=== PATIENT | female | born 1995 | race Two or more races ===

== ENCOUNTER → 2024-03-07 | Outpatient (CLI) | payer OTHER | LOC: M PLALAB 08:20 | PROVIDERS: ATTEND Nurse Practitioner Family | DX: Z34.81 Encounter for supervision of other normal pregnancy, first trimester (principal) ==

== ENCOUNTER → 2024-03-25 | Outpatient (CLI) | payer OTHER ==
[2024-03-25 15:48] LABS: TOTAL PROTEIN,RANDOM URINE 21.4 MG/DL (0.0-14.0)
[2024-03-25 15:53] LABS: CREATININE,RANDOM URINE 212.7 MG/DL
[2024-03-25 16:34] LABS: GC DNA AMPLIFICATION NEGATIVE (NEGATIVE)
[2024-03-25 19:51] LABS: HEMATOCRIT 39.3 % (36.0-47.0); HEMOGLOBIN 13.1 g/dl (12.0-15.5); MEAN CORPUSCULAR HEMOGLOBIN 30.3 pg (27.0-33.0); MEAN CORPUSCULAR HGB CONC 33.3 g/dl (32.0-36.5); MEAN CORPUSCULAR VOLUME 90.8 fl (80.0-96.0); PLATELET COUNT, AUTOMATED 313 10^3/uL (150-450); RED BLOOD COUNT 4.33 10^6/uL (4.00-5.40); WHITE BLOOD COUNT 9.7 10^3/uL (4.0-10.0)
[2024-03-25 20:22] LABS: LDH LACTATE DEHYDROGENASE 207 U/L (120-246)
[2024-03-25 20:23] LABS: ALT/SGPT 22 U/L (7.0-40); AST/SGOT 43 U/L (<34); BILIRUBIN,TOTAL 0.4 MG/DL (0.3-1.2); CREATININE FOR GFR 0.67 MG/DL (0.55-1.30); GLOMERULAR FILTRATION RATE > 60.0 (>60)
[2024-03-25 20:52] LABS: HIV 1&2 SCREEN NEGATIVE (NEGATIVE)
[2024-03-25 21:01] LABS: HEPATITIS C VIRUS ABY INDEX < 0.02 INDEX (<0.8)
== END ==
LOC: M PLALAB 14:10
PROVIDERS: ATTEND Nurse Practitioner Family
DX: O09.299 Supervision of pregnancy with other poor reproductive or obstetric history, unspecified trimester (principal); Z3A.00 Weeks of gestation of pregnancy not specified

== ENCOUNTER → 2024-04-11 | Outpatient (CLI) | payer OTHER | LOC: M PLALAB 08:30 | PROVIDERS: ATTEND Nurse Practitioner Family | DX: Z34.82 Encounter for supervision of other normal pregnancy, second trimester (principal) ==

== ENCOUNTER → 2024-04-22 | Outpatient (REF) | payer OTHER | LOC: M SFHCWAGY 15:30 | PROVIDERS: ATTEND Nurse Practitioner Family | DX: Z34.80 Encounter for supervision of other normal pregnancy, unspecified trimester (principal) ==

== ENCOUNTER → 2024-05-04 | Outpatient (CLI) | payer OTHER | LOC: M RAD 15:22 | PROVIDERS: ATTEND Nurse Practitioner Family | DX: Z34.82 Encounter for supervision of other normal pregnancy, second trimester (principal) ==

== ENCOUNTER → 2024-06-13 | Outpatient (CLI) | payer OTHER ==
[2024-06-13 11:37] LABS: GLUCOSE CHALLENGE TEST 1 HOUR 116 MG/DL (LESS THAN 140)
[2024-06-13 12:05] LABS: HIV 1&2 SCREEN NEGATIVE (NEGATIVE)
[2024-06-13 12:13] LABS: HEPATITIS C VIRUS ABY INDEX 0.11 INDEX (<0.8)
[2024-06-13 12:37] LABS: Trichomonas vaginalis (AMP) NOT DETECTED (NEGATIVE)
[2024-06-13 13:02] LABS: GC DNA AMPLIFICATION NEGATIVE (NEGATIVE)
[2024-06-13 20:13] LABS: HEMATOCRIT 35.7 % (36.0-47.0); HEMOGLOBIN 11.6 g/dl (12.0-15.5); MEAN CORPUSCULAR HEMOGLOBIN 30.7 pg (27.0-33.0); MEAN CORPUSCULAR HGB CONC 32.5 g/dl (32.0-36.5); MEAN CORPUSCULAR VOLUME 94.4 fl (80.0-96.0); PLATELET COUNT, AUTOMATED 347 10^3/uL (150-450); RED BLOOD COUNT 3.78 10^6/uL (4.00-5.40); WHITE BLOOD COUNT 9.7 10^3/uL (4.0-10.0)
== END ==
LOC: M PLALAB 08:13
PROVIDERS: ATTEND Nurse Practitioner Family
DX: Z34.80 Encounter for supervision of other normal pregnancy, unspecified trimester (principal)

== ENCOUNTER → 2024-06-15 | Outpatient (CLI) | payer OTHER | LOC: M RAD 13:14 | PROVIDERS: ATTEND Nurse Practitioner Family | DX: Z34.80 Encounter for supervision of other normal pregnancy, unspecified trimester (principal) ==

== ENCOUNTER → 2024-07-11 | Outpatient (CLI) | payer OTHER ==
[2024-07-11 19:47] LABS: ALBUMIN 2.6 G/DL (3.2-5.2); ALKALINE PHOSPHATASE 110 U/L (35-104); ALT/SGPT 52 U/L (7.0-40); AST/SGOT 16 U/L (<34); BILIRUBIN,TOTAL 0.4 MG/DL (0.3-1.2); BLOOD UREA NITROGEN 7 MG/DL (9-23); CALCIUM LEVEL 8.9 MG/DL (8.5-10.1); CARBON DIOXIDE LEVEL 25 MMOL/L (20-31); CHLORIDE LEVEL 104 MMOL/L (98-107); CREATININE FOR GFR 0.55 MG/DL (0.55-1.30); GLOMERULAR FILTRATION RATE > 60.0 (>60); GLUCOSE, FASTING 81 MG/DL (60-100); POTASSIUM SERUM 4.5 MMOL/L (3.5-5.1); SODIUM LEVEL 139 MMOL/L (136-145); TOTAL PROTEIN 6.4 G/DL (5.7-8.2)
== END ==
LOC: M PLALAB 16:07
PROVIDERS: ATTEND Nurse Practitioner Family
DX: O99.713 Diseases of the skin and subcutaneous tissue complicating pregnancy, third trimester (principal)

== ENCOUNTER → 2024-08-01 | Outpatient (CLI) | payer OTHER ==
[2024-08-01 18:26] LABS: ALBUMIN 2.8 G/DL (3.2-5.2); ALKALINE PHOSPHATASE 115 U/L (35-104); ALT/SGPT 22 U/L (7.0-40); AST/SGOT 17 U/L (<34); BILIRUBIN,DIRECT < 0.1 MG/DL (<0.4); BILIRUBIN,TOTAL 0.3 MG/DL (0.3-1.2); TOTAL PROTEIN 6.1 G/DL (5.7-8.2)
== END ==
LOC: M PLALAB 14:37
PROVIDERS: ATTEND Specialist
DX: O26.643 Intrahepatic cholestasis of pregnancy, third trimester (principal)

== ENCOUNTER → 2024-08-10 | Outpatient (CLI) | payer OTHER | LOC: M WHC 13:40 | PROVIDERS: ATTEND Obstetrics & Gynecology | DX: K83.1 Obstruction of bile duct (principal) ==

== ENCOUNTER 2024-08-24 14:14 | Emergency (ER) | payer OTHER ==
[~2024-08-24] VITALS: Ht 160 cm; Wt 71.7 kg
[2024-08-24 14:17] VITALS: BP 110/60; TEMP 97.9; O2SAT 98
== END 2024-08-24 14:51 | disposition left against medical advice (07) ==
LOC: M ED 14:14
DX: Z53.21 Procedure and treatment not carried out due to patient leaving prior to being seen by health care provider (principal)

== ENCOUNTER → 2024-08-24 | Outpatient (CLI) | payer OTHER | LOC: M WHC 07:03 | PROVIDERS: ATTEND Obstetrics & Gynecology | DX: K83.1 Obstruction of bile duct (principal) ==

== ENCOUNTER → 2024-09-02 | Outpatient (REF) | payer OTHER ==
[~2024-09-02] MED LIST: PRENTAB9 PO; URSO1TAB2 PO
== END ==
LOC: M PLALAB 14:14
PROVIDERS: ATTEND Specialist
DX: Z36.89 Encounter for other specified antenatal screening (principal); Z3A.36 36 weeks gestation of pregnancy

== ENCOUNTER → 2025-01-27 | Outpatient (REF) | payer OTHER, MEDICAID ==
[2025-01-31 13:02] LABS: HPV APTIMA Not Detected (Not Detected)
== END ==
LOC: M SFHCWAGY 13:10
PROVIDERS: ATTEND Advanced Practice Midwife
DX: Z12.4 Encounter for screening for malignant neoplasm of cervix (principal)